=== PATIENT | female | born 1980 | race Caucasian/White ===

== ENCOUNTER 2024-08-07 10:19 | Inpatient (IN) ==
[2024-08-07] MEDS ORDERED: OXYTOCIN 30 UNITS/NSS 30 UNITS/500 ML BAG IV PRN (12:26)
[2024-08-07] MEDS ORDERED: LIDOCAINE 1% LOCAL 20 ML VIAL INFIL PRN (12:26)
--- NOTE | 2024-08-07 12:26 | Obstetrical Progress Note ---
Date of Service August 07, 2024 Assessment & Plan (1) : Plan: 43 yo G1 at 39+ gestation Here for induction of labor FHR; CAT1 Ctx; Minimal bedside sono; VTx VE; FT Discussed options including balloon, or Cytotec Pt agreeable to balloon Balloon easily placed with 30cc saline Admission and Anticipated Discharge Date Admission Date: August 07, 2024 Results & Data Vital Signs (Past 12 Hours) Vital Signs Temp Pulse Resp BP 08/07/24 10:44 36.5 C 75 20 111/69 08/07/24 10:37 75 111/69
[2024-08-07 12:50] LABS: Hematocrit (blood only) 41.4 % (37.0-47.0); Mean Corpuscular Hemoglobin 33.5 pg (25.0-34.0); Mean Corpuscular Hgb Conc 33.8 g/dL (32.0-36.0); Mean Platelet Volume 11.7 fL (9.4-12.4); Platelet Count 134 K/uL (130-400); RDW Coefficient of Variation 12.6 % (11.5-14.5); RDW Standard Deviation 46.4 fL (36.4-46.3); Red Blood Count 4.18 M/uL (4.20-5.40); White Blood Count 6.47 K/ul (4.8-10.8)
[2024-08-07] MEDS ORDERED: Nursing to Pharmacy Communication SCH (14:00)
[2024-08-07] MEDS: OXYTOCIN 30 UNITS/NSS 30 UNITS/500 ML BAG IV PRN (14:07)
[2024-08-07] MEDS: LACTATED RINGER'S 1,000 ML IV PRN (14:07)
[2024-08-07] MEDS ORDERED: miSOPROStoL 50 MCG TAB PO SCH (16:00)
--- NOTE | 2024-08-08 10:01 | Obstetrical Progress Note ---
Date of Service August 08, 2024 Assessment & Plan (1) : Plan: Induction of labor Pt doing well FHR; CAT1 Ctz 3-4min Pit; 4Mu VE; 3cm/50% Admission and Anticipated Discharge Date Admission Date: August 07, 2024 Results & Data Vital Signs (Past 12 Hours) Vital Signs Temp Pulse Resp BP 08/08/24 09:06 59 L 90/51 L 08/08/24 07:56 36.7 C 20 08/08/24 07:17 52 L 101/56 L 08/08/24 03:49 36.7 C 61 16 107/57 L 08/07/24 23:38 36.7 C 52 L 18 97/66 L
[2024-08-08] MEDS: BUPIVACAINE 0.25% PF 30 ML VIAL ONE (18:56)
[2024-08-08] MEDS: SODIUM CHLORIDE 0.9% PF INJ 10 ML VIAL ONE (18:56)
[2024-08-08] MEDS: LIDOCAINE 2%/EPINEPHRINE 1:200,000 20 ML PF ONE (18:56)
[2024-08-08] MEDS: fentaNYL citrate PF 100 MCG/2 ML VIAL ONE (18:57)
[2024-08-08] MEDS: fentANYL 2 MCG/ML BUPIVacaine 0.125%-NSS 100ML BAG ONE (18:58)
--- NOTE | 2024-08-08 19:39 | Progress Note ---
Date of Service August 08, 2024 Assessment & Plan (1) : Plan: Pt doing well Epidural analgesia placed HR; CAT1 Ctx : 2-4min Pit; 10Mu VE 4cm/75/-2 SROM- clear fluid scalp placed Admission and Anticipated Discharge Date Admission Date: August 07, 2024 Results & Data Vital Signs (Past 12 Hours) Vital Signs Temp Pulse Resp BP Pulse Ox 08/08/24 19:35 50 L 116/63 08/08/24 19:33 56 L 100 08/08/24 19:31 57 L 106/62 08/08/24 19:28 54 L 100 08/08/24 19:26 56 L 111/70 08/08/24 19:24 56 L 121/73 08/08/24 19:23 54 L 100 08/08/24 19:22 60 127/62 08/08/24 19:20 58 L 124/66 08/08/24 19:18 55 L 99 08/08/24 19:16 51 L 121/77 08/08/24 19:14 49 L 119/69 08/08/24 19:13 52 L 100 08/08/24 19:12 54 L 121/64 08/08/24 19:11 58 L 119/77 08/08/24 19:08 56 L 112/65 100 08/08/24 19:06 55 L 104/59 L 08/08/24 19:04 55 L 119/59 L 08/08/24 19:03 100 08/08/24 19:03 55 L 08/08/24 19:03 63 123/64 08/08/24 19:00 53 L 125/74 08/08/24 18:58 55 L 99 08/08/24 18:53 55 L 100 08/08/24 18:48 56 L 100 08/08/24 18:21 50 L 139/83 08/08/24 17:03 55 L 116/76 08/08/24 15:45 60 101/69 08/08/24 14:38 54 L 108/61 08/08/24 13: 37.0 C 51 L 20 98/55 L 08/08/24 12:35 51 L 102/59 L 08/08/24 11:21 51 L 100/56 L 08/08/24 10:07 64 109/56 L 08/08/24 09:06 59 L 90/51 L 08/08/24 07:56 36.7 C 20
--- NOTE | 2024-08-08 21:21 | Obstetrical Progress Note ---
Date of Service August 08, 2024 Assessment & Plan Admission and Anticipated Discharge Date Admission Date: August 07, 2024 Subjective Patient seen and examined. Reviewed her records and confirmed her past medical surgical social history with her. I got the signout from who admitted her yesterday morning for induction of labor at term for AMA. She has received cervical ripening with Harley balloon followed by oxytocin per protocol. She has received epidural for pain this evening and then SROM at 19:16 p.m. heart rate had been category 1 with occasional variable D cells with quick recovery with position changes. she had to put deeper decelerations about half an hour ago when her nurse Marilu stopped oxytocin and gave her nasal oxygen with IV fluid bolus. It has recovered to 140s with no decelerations for the last 20 minutes. She checked her cervix and she was 5 cm dilated, 90% effaced and -2 station. Patient is comfortable, denies pain, contractions, pressure, fever or chills. I rechecked her cervix which changed to 7 cm, 90% effaced, head is 0 station comes to +1 with contraction, there is caput in the middle for about 3 to 4 cm wide. Anterior fontanelle at 9 0'clock position. Scalp stimulation caused heart rate acceleration to 160s came down to baseline of 140s with moderate variability. Category 1 strip. Harley catheter is draining clear urine. continue to monitor closely, restart oxytocin and half of the last dose. All questions were answered. Results & Data Vital Signs (Past 12 Hours) Vital Signs Temp Pulse Resp BP Pulse Ox 08/08/24 21:18 54 L 100 08/08/24 21:14 55 L 124/76 08/08/24 21:13 55 L 100 08/08/24 21:08 55 L 100 08/08/24 21:03 54 L 100 08/08/24 20:58 56 L 124/69 100 08/08/24 20:53 62 99 08/08/24 20:48 51 L 100 08/08/24 20:44 56 L 110/77 08/08/24 20:43 55 L 100 08/08/24 20:39 16 08/08/24 20:39 36.7 C 16 08/08/24 20:38 51 L 100 08/08/24 20:33 53 L 99 08/08/24 20:29 66 91 08/08/24 20:28 64 98 08/08/24 20:25 60 166/61 H 08/08/24 20:23 58 L 92 08/08/24 20:21 54 L 128/72 08/08/24 20:18 54 L 100 08/08/24 20:16 50 L 125/78 08/08/24 20:13 54 L 100 08/08/24 20:11 58 L 115/72 08/08/24 20:08 68 100 08/08/24 20:06 57 L 124/74 08/08/24 20:03 56 L 100 08/08/24 20:00 52 L 137/74 08/08/24 19:58 58 L 100 08/08/24 19:56 58 L 86 L 08/08/24 19:53 57 L 100 08/08/24 19:50 55 L 123/74 08/08/24 19:48 52 L 100 08/08/24 19:44 51 L 133/69 08/08/24 19:43 53 L 100 08/08/24 19:41 58 L 128/65 08/08/24 19:38 55 L 100 08/08/24 19:35 50 L 116/63 08/08/24 19:33 56 L 100 08/08/24 19:31 57 L 106/62 08/08/24 19:28 54 L 100 08/08/24 19:26 56 L 111/70 08/08/24 19:24 56 L 121/73 08/08/24 19:23 54 L 100 08/08/24 19:22 60 127/62 08/08/24 19:20 58 L 124/66 08/08/24 19:18 55 L 99 08/08/24 19:16 51 L 121/77 08/08/24 19:14 49 L 119/69 08/08/24 19:13 52 L 100 08/08/24 19:12 54 L 121/64 08/08/24 19:11 58 L 119/77 08/08/24 19:08 56 L 112/65 100 08/08/24 19:06 55 L 104/59 L 08/08/24 19:04 55 L 119/59 L 08/08/24 19:03 100 08/08/24 19:03 55 L 08/08/24 19:03 63 123/64 08/08/24 19:00 53 L 125/74 08/08/24 18:58 55 L 99 08/08/24 18:53 55 L 100 08/08/24 18:48 56 L 100 08/08/24 18:21 50 L 139/83 08/08/24 17:03 55 L 116/76 08/08/24 15:45 60 101/69 08/08/24 14:38 54 L 108/61 08/08/24 13:25 37.0 C 51 L 20 98/55 L 08/08/24 12:35 51 L 102/59 L 08/08/24 11:21 51 L 100/56 L 08/08/24 10:07 64 109/56 L
--- NOTE | 2024-08-08 23:59 | Obstetrical Progress Note ---
Date of Service August 08, 2024 Assessment & Plan Admission and Anticipated Discharge Date Admission Date: August 07, 2024 Subjective Patient is reevaluated. She feels well, no complaints She has been just checked by her nurse, 10/100%/ +1, no urge to push, decided to labor down until she has pressure or urge to push FHR categ I VSS Afbrile Continue to monitor Results & Data Vital Signs (Past 12 Hours) Vital Signs Temp Pulse Resp BP Pulse Ox 08/08/24 23:53 59 L 96 08/08/24 23:48 60 98 08/08/24 23:44 59 L 115/74 08/08/24 23:43 61 98 08/08/24 23:38 60 98 08/08/24 23:33 57 L 98 08/08/24 23:28 99 08/08/24 23:28 58 L 08/08/24 23:28 59 L 132/78 08/08/24 23:23 55 L 97 08/08/24 23:18 57 L 97 08/08/24 23:13 56 L 127/82 99 08/08/24 23:08 63 96 08/08/24 23:03 56 L 99 08/08/24 23:00 55 L 128/85 08/08/24 22:58 55 L 97 08/08/24 22:53 55 L 96 08/08/24 22:48 56 L 94 08/08/24 22:47 54 L 94 08/08/24 22:45 53 L 121/72 08/08/24 22:43 52 L 96 08/08/24 22:38 55 L 97 08/08/24 22:33 50 L 97 08/08/24 22:29 52 L 127/78 08/08/24 22:28 55 L 95 08/08/24 22:23 59 L 97 08/08/24 22:18 51 L 97 08/08/24 22:15 55 L 130/76 08/08/24 22:13 56 L 96 08/08/24 22:08 53 L 99 08/08/24 22:03 52 L 99 08/08/24 21:59 50 L 137/72 08/08/24 21:58 50 L 99 08/08/24 21:53 54 L 100 08/08/24 21:48 52 L 100 08/08/24 21:45 56 L 127/78 08/08/24 21:43 53 L 99 08/08/24 21:38 51 L 100 08/08/24 21:33 52 L 100 08/08/24 21:28 54 L 120/68 100 08/08/24 21:23 53 L 100 08/08/24 21:18 54 L 100 08/08/24 21:14 55 L 124/76 08/08/24 21:13 55 L 100 08/08/24 21:08 55 L 100 08/08/24 21:03 54 L 100 08/08/24 20:58 56 L 124/69 100 08/08/24 20:53 62 99 08/08/24 20:48 51 L 100 08/08/24 20:44 56 L 110/77 08/08/24 20:43 55 L 100 08/08/24 20:39 16 08/08/24 20:39 36.7 C 16 08/08/24 20:38 51 L 100 08/08/24 20:33 53 L 99 08/08/24 20:29 66 91 08/08/24 20:28 64 98 08/08/24 20:25 60 166/61 H 08/08/24 20:23 58 L 92 08/08/24 20:21 54 L 128/72 08/08/24 20:18 54 L 100 08/08/24 20:16 50 L 125/78 08/08/24 20:13 54 L 100 08/08/24 20:11 58 L 115/72 08/08/24 20:08 68 100 08/08/24 20:06 57 L 124/74 08/08/24 20:03 56 L 100 08/08/24 20:00 52 L 137/74 08/08/24 19:58 58 L 100 08/08/24 19:56 58 L 86 L 08/08/24 19:53 57 L 100 08/08/24 19:50 55 L 123/74 08/08/24 19:48 52 L 100 08/08/24 19:44 51 L 133/69 08/08/24 19:43 53 L 100 08/08/24 19:41 58 L 128/65 08/08/24 19:38 55 L 100 08/08/24 19:35 50 L 116/63 08/08/24 19:33 56 L 100 08/08/24 19:31 57 L 106/62 08/08/24 19:28 54 L 100 08/08/24 19:26 56 L 111/70 08/08/24 19:24 56 L 121/73 08/08/24 19:23 54 L 100 08/08/24 19:22 60 127/62 08/08/24 19:20 58 L 124/66 08/08/24 19:18 55 L 99 08/08/24 19:16 51 L 121/77 08/08/24 19:14 49 L 119/69 08/08/24 19:13 52 L 100 08/08/24 19:12 54 L 121/64 08/08/24 19:11 58 L 119/77 08/08/24 19:08 56 L 112/65 100 08/08/24 19:06 55 L 104/59 L 08/08/24 19:04 55 L 119/59 L 08/08/24 19:03 100 08/08/24 19:03 55 L 08/08/24 19:03 63 123/64 08/08/24 19:00 53 L 125/74 08/08/24 18:58 55 L 99 08/08/24 18:53 55 L 100 08/08/24 18:48 56 L 100 08/08/24 18:21 50 L 139/83 08/08/24 17:03 55 L 116/76 08/08/24 15:45 60 101/69 08/08/24 14:38 54 L 108/61 08/08/24 13:25 37.0 C 51 L 20 98/55 L 08/08/24 12:35 51 L 102/59 L
[2024-08-09] MEDS: MINERAL OIL 30 ML UDC ONE (01:13)
[2024-08-09] MEDS ORDERED: HYDROCORTISONE ACETATE 25 MG SUPP PR PRN (01:46)
[2024-08-09] MEDS ORDERED: bisacodyL 10 MG SUPP PR PRN (01:46)
[2024-08-09] MEDS ORDERED: oxyCODONE/ACETAMINOPHEN 5mg/325mg TAB PO PRN (01:46)
[2024-08-09] MEDS ORDERED: OXYTOCIN 30 UNITS/NSS 30 UNITS/500 ML BAG IV PRN (01:46)
--- NOTE | 2024-08-09 01:51 | Delivery Summary ---
Vaginal Delivery Summary Date of Service August 09, 2024 Vaginal Delivery Summary Patient was found to be fully dilated and desires to push. She pushed with 2 contractions only and delivered the head and then shoulders with minimal traction at 01:13. The baby was handed off to the mother. The cord was clampedx2 and cut at 1 minute. The vagina and perineum were checked and found to have small 2nd degree perineal and small 1 st degree periurethral laceration. A catheter was inserted to urethra and the superficial laceration on the left of ureteral tissue was repaired with 3-0 Vicryl on SH needle with 3 [id number] stitches. Excellent hemostasis achieved. The vaginal mucosa was repaired with 2/0 Vicryl and The muscles were brought together in the middle with a continuous suture and the skin was reapproximated on subcuticular fashion. The placenta was delivered spontaneously as intact and complete. The uterus was explored and found to be empty. QBL was 430 ml. The fundus was firm The baby was a viable male infant, Apgars 8/9, the weight is pending The mother and the baby tolerated the procedure well. No complications happened and I was present during whole procedure.
[2024-08-09] MEDS: ePHEDrine sulfate 50 MG/ML AMP ONE (02:13)
[2024-08-09 02:21] VITALS: RESP 16
[2024-08-09] MEDS: MEASLES, MUMPS & RUBELLA VIRUS VACCINE (MMR) 0.5ML VIAL SQ ONE (02:39)
[2024-08-09] MEDS: DIPHTHER/TETAN/PERTUS Vaccine (Tdap, Adol/Adult) 0.5mL IM ONE (02:39)
[2024-08-09] MEDS: PRENATAL VITAMIN 1 TAB PO SCH (09:00)
[2024-08-09] MEDS: FERROUS SULFATE 325 MG TAB PO SCH (09:00)
[2024-08-09] MEDS: DOCUSATE SODIUM 100 MG CAP PO SCH (09:00)
[2024-08-09] MEDS: IBUPROFEN 600 MG TAB PO PRN (09:00)
[2024-08-09] MEDS: BENZOCAINE 20% SPRY 85 APPLN/85 GM CAN EXT PRN (09:04)
--- NOTE | 2024-08-09 10:14 | Anesthesia Procedure Note ---
Date of Service August 09, 2024 Anesthesia Post Epidural Note Vital Signs Vital Signs: Temp Pulse Resp BP Pulse Ox O2 Del Method 36.7 C 71 16 100/68 98 Room Air 08/09/24 08:15 08/09/24 08:15 08/09/24 08:15 08/09/24 08:15 08/09/24 08:15 08/09/24 08:15 Pain Intensity Perineal: Pain Intensity: 6 Notes Mental Status: alert / awake / arousable and participated in evaluation Nausea / Vomiting: adequately controlled Pain: adequately controlled Airway Patency, RR, SpO2: stable & adequate BP & HR: stable & adequate Hydration State: stable & adequate Neuraxial Anesthesia: was administered and sensory block resolved Anesthetic Complications: no major complications apparent and Pt Satisfied with anesthetic care Epidural: Removed without complications and With tip intact
[2024-08-09] MEDS: ACETAMINOPHEN 325 MG TAB PO PRN (17:28)
[2024-08-09] MEDS: bisacodyL 5 MG TABEC PO SCH (20:03)
[2024-08-10 06:47] LABS: Hemoglobin 10.2 g/dl (12.0-16.0); Mean Corpuscular Hemoglobin 34.3 pg (25.0-34.0); Mean Platelet Volume 11.4 fL (9.4-12.4); Platelet Count 93 K/uL (130-400); Platelet Estimate Decreased (Normal); Red Blood Count 2.97 M/uL (4.20-5.40); White Blood Count 9.81 K/ul (4.8-10.8)
[2024-08-10 07:40] VITALS: BP 119/75; PULSE 70; TEMP 97.7; O2SAT 96
--- NOTE | 2024-08-10 09:31 | Obstetrical Progress Note ---
Date of Service August 10, 2024 Assessment & Plan Admission and Anticipated Discharge Date Admission Date: August 07, 2024 Subjective abdomen soft and non tender no calf tenderness ambulating well vaginal bleeding scant hgb 10.2 Results & Data Vital Signs (Past 12 Hours) Vital Signs Temp Pulse Resp BP Pulse Ox O2 Del Method 08/10/24 07:35 36.5 C 70 16 119/75 96 Room Air
== END 2024-08-10 15:40 | disposition home or self-care (01) | DRG 807 ==
LOC: 4S1 10:19 → 4E2 08-09 05:18